=== PATIENT | female | born 1945 | race Caucasian/White ===

== ENCOUNTER 2023-09-11 10:07 | Emergency (ER) | payer OTHER ==
[~2023-09-11] VITALS: Ht 154.9 cm; Wt 47.6 kg
[2023-09-11 10:29] VITALS: BP 124/68; PULSE 71; RESP 16; TEMP 98; O2SAT 97
[2023-09-11] MEDS: MORPHINE SULFATE 4 MG/ML SYR IM ONE (11:02)
[2023-09-11] MEDS ORDERED: IBUP-1842 PO (11:48)
[2023-09-11] MEDS ORDERED: ACET-8905 PO (11:48)
[2023-09-11 12:22] VITALS: BP 118/60; PULSE 70; RESP 14; TEMP 98; O2SAT 97
== END 2023-09-11 12:22 | disposition home or self-care (01) ==
LOC: MED 10:07
DX: M54.50 Low back pain, unspecified (principal); M25.551 Pain in right hip; I10 Essential (primary) hypertension; Z98.890 Other specified postprocedural states
CPT/HCPCS: 72100; 73502; 96372; 99284; J2270